=== PATIENT | female | born 1965 | race Caucasian/White ===

== ENCOUNTER 2017-10-10 13:04 | Day surgery (SDC) | payer OTHER ==
[~2017-10-10] VITALS: Ht 162.6 cm; Wt 65.6 kg
[2017-10-10 14:14] VITALS: Ht 162.6 cm; Wt 65.6 kg
[2017-10-10 15:48] VITALS: BP 121/72; PULSE 71; RESP 18
--- NOTE | 2017-10-10 17:06 | OPPN ---
Date/Time of Note Date/Time of Note DATE: 10/10/17 TIME: 16:59 Proc Note GI Procedure Date 10/10/17 Indication: other (CRC screening) Pre-procedure Diagnosis CRC screening Post-procedure Diagnosis Impression: 3 millimeter rectal polyp. Ablated Moderate-sized internal hemorrhoids Otherwise normal colonoscopy to cecum Plan: Follow up as scheduled] High fiber diet Annual hemoccult stool testing [Review pathology] [Surveillance colonoscopy in 5-10 years, pending review of pathology . Procedure Performed: Colonoscopy Surgeon see signature line Business Manager [employer] none Anesthesia Type: moderate sedation (Versed 4mg/Fenta) Tourniquet Time none EBL none Transfusion required none Biopsy 1: none Polyp 1: rectal polyp Grafts/Implants none Tubes/Drains none Complication(s) none Procedure Description After informed consent, with the patient/relatives understanding the procedure, its indications and potential risks and complications, including but not limited to: Allergic reaction, bleeding, perforation, infection, and after all pertinent questions were answered to the patient's satisfaction, the patient/ relatives signed the witnessed informed consent. Following this, premedication was administered slowly IV push under careful cardiovascular and respiratory monitoring with pulse OXIMETRY, automatic blood pressure, and youth nutritional monitor. Once the sedative effect was achieved, the patient was placed in the left lateral decubitus position, digital rectal examination was performed. The colonoscope was then introduced and advanced under visual control throughout all segments of the colon including: the rectum, sigmoid, descending colon, splenic flexure, transverse colon, hepatic flexure, ascending colon and finally reaching the cecum which was clearly identified by transillumination, finger indentation and the ileocecal valve. Careful examination of the mucosa of the lower gastrointestinal tract both on insertion as well as withdrawal of the instrument disclosed the following findings: PREPARATION QUALITY: [Adequate], RECTAL EXAM: The anorectal area was visualized examined and digital rectal examination performed with the following findings: No evidence of perirectal disease, no masses. COLONIC MUCOSA: The mucosa of all segments of the colon was carefully examined and showed the following findings: There is a 3 mm polyp in the rectum. Ablated. Otherwise the examined mucosa appears within normal limits. There is no evidence of inflammatory changes, diverticular formation, other polyps or neoplasms, vascular malformation, or any other abnormality. Moderate-sized internal hemorrhoids The instrument was then withdrawn, the patient tolerated the procedure well and was transferred out of the Endoscopy Suite awake and in good condition to continue recovery under observation. Copies To: CC: LAINA ROWLEY MD, MORDO MD Oct 10, 2017 17:06
--- NOTE | 2017-10-10 17:44 | OPPN ---
Date/Time of Note Date/Time of Note DATE: 10/10/17 TIME: 17:41 Proc Note GI Procedure Date 10/10/17 Indication: other (CRC screening) Pre-procedure Diagnosis CRC screening Post-procedure Diagnosis Impression: Melanosis coli, universal Moderate-sized internal hemorrhoids. Otherwise normal colonoscopy to cecum. Plan: Follow up as scheduled] High fiber diet Annual hemoccult stool testing [Screening colonoscopy in 10 years] Procedure Performed: Colonoscopy Surgeon see signature line Program Support Clerk none Anesthesia Type: moderate sedation (Versed 4mg/Fenta) Tourniquet Time none EBL none Transfusion required none Biopsy 1: none Grafts/Implants none Tubes/Drains none Complication(s) none Disposition: home Procedure Description After informed consent, with the patient/relatives understanding the procedure, its indications and potential risks and complications, including but not limited to: Allergic reaction, bleeding, perforation, infection, and after all pertinent questions were answered to the patient's satisfaction, the patient/ relatives signed the witnessed informed consent. Following this, premedication was administered slowly IV push under careful cardiovascular and respiratory monitoring with pulse OXIMETRY, automatic blood pressure, and systems administrator. Once the sedative effect was achieved, the patient was placed in the left lateral decubitus position, digital rectal examination was performed. The colonoscope was then introduced and advanced under visual control throughout all segments of the colon including: the rectum, sigmoid, descending colon, splenic flexure, transverse colon, hepatic flexure, ascending colon and finally reaching the cecum which was clearly identified by transillumination, finger indentation and the ileocecal valve. Careful examination of the mucosa of the lower gastrointestinal tract both on insertion as well as withdrawal of the instrument disclosed the following findings: PREPARATION QUALITY: [Adequate], RECTAL EXAM: The anorectal area was visualized examined and digital rectal examination performed with the following findings: No evidence of perirectal disease, no masses. COLONIC MUCOSA: The mucosa of all segments of the colon was carefully examined and showed the following findings: There is melanosis coli throughout the colon, graded as mild. Moderate-sized internal hemorrhoids are present. Otherwise the examined mucosa appears within normal limits. There is no evidence of inflammatory changes, diverticular formation, polyps or neoplasms, vascular malformation, or any other abnormality. The instrument was then withdrawn, the patient tolerated the procedure well and was transferred out of the Endoscopy Suite awake and in good condition to continue recovery under observation. Copies To: CC: LAINA ROWLEY MD, MORDO MD Oct 10, 2017 17:44
[2017-10-10] MEDS ORDERED: MIDAZOLAM 1 MG/ML 2 ML INJ ONE ×2 (17:55)
[2017-10-10] MEDS ORDERED: FENTAnyl 50 MCG/ML VIAL ONE (17:55)
== END 2017-10-10 18:10 | disposition home or self-care (01) ==
LOC: GIL 13:04
PROVIDERS: ATTEND Internal Medicine Gastroenterology
DX: Z12.11 Encounter for screening for malignant neoplasm of colon (principal); K64.8 Other hemorrhoids; K63.89 Other specified diseases of intestine; E78.00 Pure hypercholesterolemia, unspecified
CPT/HCPCS: 45378; 84703; J2250; J3010; Z7610